=== PATIENT | male | born 1960 | race Caucasian/White ===

== ENCOUNTER → 2024-08-13 09:38 | Outpatient (CLI) | payer OTHER, SELFPAY ==
[2024-08-13 19:30] LABS: Add Manual Diff / Slide Review NO; Basophils Absolute Auto 100 /uL (0-100); Basophils Percent Auto 1.3 % (0-2); Eosinophils Absolute Auto 200 /uL (0-450); Eosinophils Percent Auto 4.1 % (2-4); Hematocrit 39.8 % (41-53); Hemoglobin 13.6 g/dL (13.5-17.5); Lymphocytes Absolute Auto 1100 /uL (1100-4500); Lymphocytes Percent Auto 20.7 % (25-40); Mean Corpuscular HGB Conc 34.3 % (30-36); Mean Corpuscular Hemoglobin 31.4 PG (26-34); Mean Corpuscular Volume 91.5 fL (80-100); Monocytes Absolute Auto 500 /uL (0-900); Monocytes Percent Auto 8.3 % (3-14); Neutrophils Absolute Auto 3600 /uL (1500-7000); Neutrophils Percent Auto 65.6 % (50-75); Platelet Count 289 X10^3/uL (150-400); Red Blood Cell Count 4.34 X10^6/uL (4.5-5.9); Red Cell Distribution Width 12.9 % (11.6-14.8); White Blood Cell Count 5.5 X10^3/uL (4.5-11.0)
[2024-08-13 19:48] LABS: Alanine Aminotransferase 22 IU/L (<50); Albumin 4.1 g/dL (3.5-5.0); Albumin Globulin Ratio 1.1 (1.0-2.8); Alkaline Phosphatase 43 U/L (38-126); Aspartate Aminotransferase 28 IU/L (17-59); BUN Creatinine Ratio 20.6 (6-22); Blood Urea Nitrogen 20 mg/dL (9-20); Calcium 8.9 mg/dL (8.4-10.2); Carbon Dioxide 25 mmol/L (22-32); Chloride 105 mmol/L (98-107); Cholesterol 148 mg/dL (140-199); Estimated Glomerular Filt Rate > 60 mL/min (>60); Globulin 3.6 g/dL (1.7-4.1); Glucose 113 mg/dL (70-99); HDL Cholesterol 39 mg/dL (40-60); HEMOLYSIS < 15 (0-50); LDL Cholesterol Calculated 92 mg/dL (<100); Potassium 4.4 mmol/L (3.4-5.1); Sodium 137 mmol/L (137-145); Total Protein 7.7 g/dL (6.3-8.2); Triglycerides 86 mg/dL (35-150)
[2024-08-13 20:18] LABS: Prostate Specific Antigen Scrn 1.09 ng/mL (0.1-4.0)
[2024-08-17 02:36] LABS: Alder IgE 0.88 kU/L (Class II); Box Elder IgE <0.10 kU/L (Class 0); Cat Dander IgE <0.10 kU/L (Class 0); Cockroach IgE 0.39 kU/L (Class I); Cottonwood IgE <0.10 kU/L (Class 0); D farinae IgE 0.49 kU/L (Class I); D pteronyssinus IgE 0.65 kU/L (Class II); Dog Dander IgE <0.10 kU/L (Class 0); Elm Tree IgE <0.10 kU/L (Class 0); IgE Alternaria alternata <0.10 kU/L (Class 0); IgE Aspergillus fumigatus <0.10 kU/L (Class 0); IgE Aureobasidi pullulans <0.10 kU/L (Class 0); IgE Candida albicans <0.10 kU/L (Class 0); IgE Cladosporium herbarum <0.10 kU/L (Class 0); IgE Epicoccum purpur <0.10 kU/L (Class 0); IgE Fusarium proliferatum <0.10 kU/L (Class 0); IgE Mucor racemosus <0.10 kU/L (Class 0); IgE Penicillium chrysogen 0.12 kU/L (Class 0/I); IgE Phoma betae <0.10 kU/L (Class 0); IgE Setomelanomma rostrat <0.10 kU/L (Class 0); IgE Stemphylium herbarum <0.10 kU/L (Class 0); Immunoglobulin E 469 IU/mL (6-495); Mountain Cedar IgE <0.10 kU/L (Class 0); Mouse Urine Proteins IgE <0.10 kU/L (Class 0); Nettle IgE 0.11 kU/L (Class 0/I); Oak Tree IgE 0.37 kU/L (Class I); Pigweed, Common IgE <0.10 kU/L (Class 0); Ragweed, Short <0.10 kU/L (Class 0); Sheep Sorrel IgE <0.10 kU/L (Class 0); Silver Birch IgE 0.76 kU/L (Class II); Timothy Grass IgE 0.22 kU/L (Class 0/I); Walnut Allery IgE < 0.10 kU/L (Class 0); White ash IgE 0.76 kU/L (Class II)
[2024-08-21 08:45] LABS: Alternaria alternata IgE <0.10
[2024-08-21 08:48] LABS: Penicillium chrysogen IgE 0.12
== END ==
PROVIDERS: Physician Assistant Medical; PCP Family Medicine; Visit Provider Family Medicine
DX: Z13.0 Encounter for screening for diseases of the blood and blood-forming organs and certain disorders involving the immune mechanism (principal); Z13.1 Encounter for screening for diabetes mellitus; Z12.5 Encounter for screening for malignant neoplasm of prostate; Z13.6 Encounter for screening for cardiovascular disorders; Z13.29 Encounter for screening for other suspected endocrine disorder; R06.2 Wheezing; R05.9 Cough, unspecified; R00.2 Palpitations; R03.0 Elevated blood-pressure reading, without diagnosis of hypertension
CPT/HCPCS: 80053; 80061; 82785; 84443; 85025; 86003; G0103